=== PATIENT | male | born 1980 | race Caucasian/White ===

== ENCOUNTER 2019-02-06 01:45 | Emergency (ER) | payer MEDICAID ==
[~2019-02-06] VITALS: Ht 172.7 cm; Wt 68.1 kg
[2019-02-06 01:49] VITALS: BP 126/85
== END 2019-02-06 02:43 | disposition home or self-care (01) ==
LOC: ER 01:46
DX: J34.89 Other specified disorders of nose and nasal sinuses (principal); E11.42 Type 2 diabetes mellitus with diabetic polyneuropathy; G89.29 Other chronic pain
CPT/HCPCS: 99281